=== PATIENT | female | born 1945 | race Caucasian/White ===

== ENCOUNTER 2024-01-17 03:33 | Outpatient (CLI) | payer MEDICARE, SELFPAY ==
[2024-01-17 12:42] LABS: Absolute Basophil Count 0.04 10^3/uL (0.0-0.2); Absolute Eosinophil Count 0.12 10^3/uL (0.0-0.7); Absolute Monocyte Count 0.47 10^3/uL (0.1-0.8); Absolute Neutrophil Count 1.99 10^3/uL (1.2-6.7); Eosinophils % 3.1; HCT 41.6 % (36.0-46.0); HGB 13.9 g/dL (11.2-15.7); Lymphocytes % 33.2; MCH 29.8 pg (27.0-33.0); MCHC 33.4 % (32.0-36.0); MCV 89 fL (80-95); MPV 10.2 fL (8.0-11.0); Neutrophils % 50.7; Platelet Count 248 10^3/uL (130-400); RBC 4.66 10^6/uL (3.93-5.22); RDW 12.8 % (11.7-14.6); RDW-SD 41.7 fL; WBC 3.92 10^3/uL (4.4-10.8)
[2024-01-17 13:04] LABS: ALT 21 U/L (14-59); AST 19 U/L (15-37); Albumin 3.4 g/dL (3.4-5.0); Alkaline Phosphatase 71 U/L (46-116); Anion Gap 7.8 mmol/L (3-11); BUN 14 mg/dL (7-18); Bilirubin, Total 0.6 mg/dL (0.2-1.0); CO2 30.2 mmol/L (21.0-32.0); Calcium 9.3 mg/dL (8.5-10.1); Calculated LDL 137 mg/dL (<100); Chloride 105 mmol/L (98-107); Cholesterol 213 mg/dL (<200); Estimated GFR 58.39 (mL/min/1.73m2); Glucose 91 mg/dL (74-106); HDL Cholesterol 64 mg/dL (40-60); Potassium 3.7 mmol/L (3.5-5.1); Sodium 143 mmol/L (136-145); TSH 0.35 uIU/Ml (0.36-3.74); Total Protein 6.8 g/dL (6.4-8.2); Triglyceride 63 mg/dL (<150)
[2024-01-17 13:37] LABS: FREE T4 1.89 ng/dL (0.76-1.46); NT-proBNP 298 pg/mL (<300)
[2024-01-17 14:18] LABS: Hemoglobin A1C 5.5 % (<5.7)
[2024-01-19 09:57] LABS: Apolipoprotein B, S 106 mg/dL; Lipoprotein (a) 14 nmol/L (<75)
== END 2024-01-17 03:34 | disposition home or self-care (01) ==
PROVIDERS: Student in an Organized Health Care Education/Training Program
DX: E78.5 Hyperlipidemia, unspecified (principal); E03.9 Hypothyroidism, unspecified
CPT/HCPCS: 36415; 80053; 80061; 82172; 83695; 83036; 83880; 84439; 84443; 85025

== ENCOUNTER 2024-08-11 10:12 | Outpatient (CLI) | payer MEDICARE, SELFPAY ==
--- NOTE | 2024-08-11 10:16 | DI.RAD_ITS ---
Exam(s) XR CHEST 2V PA LATERAL EXAM: XR CHEST 2V PA LATERAL CLINICAL HISTORY: evaluate pathology,cough, r05.9 TECHNIQUE: 2D digital imaging was performed. Two views. COMPARISON: No exams were available for comparison FINDINGS: HEART: Normal size. Aorta: Not dilated. PULMONARY VASCULATURE: Normal. MEDIASTINUM: Unremarkable. LUNGS: Clear. PLEURAL SPACE: No pleural effusion or pneumothorax. BONE:Unremarkable for age. SOFT TISSUES: Surgical aron in the anterior chest and upper abdomen. IMPRESSION: No acute abnormality. DATA REPOSITORY: RADIATION DOSE DELIVERED:
== END 2024-08-11 10:32 ==
LOC: DI 10:15
PROVIDERS: Visit Provider Nurse Practitioner Family
DX: R05.9 Cough, unspecified (principal)
CPT/HCPCS: 71046

== ENCOUNTER 2024-08-22 16:24 | Outpatient (REF) | payer MEDICARE, SELFPAY ==
[2024-08-26 18:20] LABS: Result Negative; Specimen Source sputum
== END 2024-08-22 16:25 | disposition home or self-care (01) ==
LOC: LBN 16:24
DX: J40 Bronchitis, not specified as acute or chronic (principal)
CPT/HCPCS: 87801; 87070; 87205